=== PATIENT | male | born 1940 | race Hispanic/Latino ===

== ENCOUNTER 2024-02-02 19:13 | Inpatient (IN) | payer MEDICARE ==
[~2024-02-02] VITALS: Ht 177.8 cm; Wt 87.5 kg
[2024-02-02 20:26] LABS: BASOPHILS # (AUTO) 0.03 K/uL (0.00-0.20); BASOPHILS % (AUTO) 0.3 % (0.0-5.0); IMMATURE GRANULOCYTE ABSOLUTE 0.03 K/uL (0-1); LYMPHOCYTES # (AUTO) 0.8 K/uL (1.0-4.8); LYMPHOCYTES % (AUTO) 7.1 % (21.0-51.0); MEAN CORPUSCULAR HEMOGLOBIN 23.5 pg (27.0-33.0); MEAN CORPUSCULAR HGB CONC 31.3 g/dL (32.0-36.0); MONOCYTES # (AUTO) 1.4 K/uL (0.1-1.0); NEUTROPHILS # (AUTO) 8.4 K/uL (1.8-7.7); NEUTROPHILS % (AUTO) 79.3 % (40.0-77.0); PLATELET COUNT (AUTO) 231 K/uL (130-400); RED CELL DISTRIBUTION WIDTH 15.1 % (11.0-15.5); WHITE BLOOD COUNT (AUTO) 10.6 K/uL (4.8-10.8)
[2024-02-02 20:35] LABS: INR 0.95 (0.85-1.15); PROTHROMBIN TIME 11.2 SEC (9.6-11.6)
[2024-02-02] MEDS: 0.9%NACL 1000ML 2,259 ML IV ONE (20:37)
[2024-02-02] MEDS: ZOSYN 3.375GM+NS 50ML 50 ML IVPB STA (20:37)
[2024-02-02 20:49] LABS: BILIRUBIN,TOTAL 0.4 mg/dL (0.2-1.0); CREATININE 1.3 mg/dL (0.5-1.3); POTASSIUM 3.9 mmol/L (3.5-5.1); TOTAL PROTEIN, SERUM 7.3 g/dL (6.0-8.3)
[2024-02-02 20:51] LABS: BAND NEUTROPHILS % (MANUAL) 26 % (0-2); LYMPHOCYTES % (MANUAL) 8 % (22-44); MAN.DIFF COMMENT-IMPRESSION MANUAL DIFFERENTIAL; MONOCYTES % (MANUAL) 13 % (2-9); PLATELET MORPHOLOGY COMMENT ADEQUATE; REACTIVE LYMPHOCYTES 3 % (0-0); SEGMENTED NEUTROPHILS % 50 % (40-70); TOTAL CELLS COUNTED 100
[2024-02-02 21:17] LABS: RAPID GROUP A STREP negative (NEGATIVE)
[2024-02-02 21:19] LABS: SARS-CoV-2, RNA, NAAT NEGATIVE SARS CoV-2 (NEGATIVE)
[2024-02-02] MEDS: VANCOMYCIN 1G/250ML KIT 250 ML IV ONE (21:23)
[2024-02-02 21:27] LABS: INFLUENZA TYPE A Negative For Type A (NEGATIVE); INFLUENZA TYPE B Negative For Type B (NEGATIVE)
[2024-02-02 22:56] LABS: APPEARANCE,URINE CLEAR (CLEAR); BILIRUBIN,URINE NEGATIVE (NEGATIVE); COLOR,URINE YELLOW (YELLOW); GLUCOSE, URINE (UA) NEGATIVE (NEGATIVE); KETONES,URINE NEGATIVE (NEGATIVE); LEUKOCYTE ESTERASE ,URINE NEGATIVE Leu/uL (NEGATIVE); NITRATE,URINE NEGATIVE (NEGATIVE); OCCULT BLOOD,URINE NEGATIVE (NEGATIVE); PH,URINE 5.5 (5.0-8.0); PROTEIN,URINE 70 mg/dL (NEGATIVE); UROBILINOGEN,URINE 0.2 mg/dL (0.2-1.0)
[2024-02-02 23:05] LABS: ADD UA MICROSCOPIC YES
[2024-02-02 23:10] LABS: BACTERIA,URINE RARE /HPF (None Seen); MUCUS,URINE RARE LPF (None Seen); SQUAMOUS EPITHELIAL CELL,UR RARE /HPF (0-2)
[2024-02-02] MEDS ORDERED: ONDANSETRON 4MG INJ IV PRN (23:30)
[2024-02-02] MEDS ORDERED: IPRATROPIUM/ALBUTEROL SULFATE 3 ML SOLUTION IH PRN (23:30)
[2024-02-02] MEDS ORDERED: DEXTROSE 50%-WATER 50 ML DISP.SYRIN IV PRN (23:30)
[2024-02-02] MEDS ORDERED: GLUCAGON 1MG KIT 1 MG ML IM PRN (23:30)
[2024-02-02] MEDS ORDERED: KCL 20 MEQ ERTAB PO PRN (23:30)
[2024-02-03] VITALS (10 sets, daily range): BP systolic 108–150; BP diastolic 62–90; PULSE 65–103; RESP 16–20; O2SAT 92–99
[2024-02-03] MEDS ORDERED: MEMA5TAB16 PO (00:06)
[2024-02-03] MEDS ORDERED: AMLO-257 PO (00:06)
[2024-02-03] MEDS ORDERED: OMEP40CA21 PO (00:06)
[2024-02-03] MEDS ORDERED: SITA50TA PO (00:06)
[2024-02-03] MEDS ORDERED: METF-444 PO (00:06)
[2024-02-03] MEDS ORDERED: GLIM4TAB36 PO (00:06)
[2024-02-03] MEDS ORDERED: LOSA100T59 PO (00:06)
[2024-02-03] MEDS ORDERED: DIVA250T45 PO (00:06)
[2024-02-03] MEDS ORDERED: FURO20TA4 PO (00:06)
[2024-02-03] MEDS ORDERED: QUET50TA24 PO (00:06)
[2024-02-03] MEDS ORDERED: ATOR10TA69 PO (00:06)
[2024-02-03] MEDS ORDERED: CLOP75TA32 PO (00:06)
[2024-02-03] MEDS: METRONIDAZOLE 500MG/100ML BAG 100 ML IV SCH (00:21)
[2024-02-03] MEDS: 0.9%NACL 1000ML 1,000 ML IV SCH (00:22)
[2024-02-03] MEDS: ACETAMINOPHEN 325 MG TAB PO PRN (02:18)
[2024-02-03] MEDS: ZOSYN 3.375GM+NS 50ML 50 ML IV SCH (03:30)
[2024-02-03] MEDS: ZOSYN 3.375GM+NS 50ML 50 ML ONE (03:30)
[2024-02-03 05:50] LABS: BASOPHILS # (AUTO) 0.02 K/uL (0.00-0.20); BASOPHILS % (AUTO) 0.2 % (0.0-5.0); EOSINOPHILS # (AUTO) 0.02 K/uL (0.00-0.70); EOSINOPHILS % (AUTO) 0.2 % (0.0-8.0); HEMATOCRIT 35.9 % (42-54); IMMATURE GRANULOCYTE ABSOLUTE 0.04 K/uL (0-1); LYMPHOCYTES # (AUTO) 1.5 K/uL (1.0-4.8); LYMPHOCYTES % (AUTO) 17.4 % (21.0-51.0); MEAN CORPUSCULAR HEMOGLOBIN 23.7 pg (27.0-33.0); MEAN CORPUSCULAR HGB CONC 30.6 g/dL (32.0-36.0); MEAN CORPUSCULAR VOLUME 77.2 fL (79-99); MONOCYTES # (AUTO) 1.4 K/uL (0.1-1.0); MONOCYTES % (AUTO) 16.2 % (3.0-13.0); NEUTROPHILS # (AUTO) 5.5 K/uL (1.8-7.7); NEUTROPHILS % (AUTO) 65.5 % (40.0-77.0); PLATELET COUNT (AUTO) 190 K/uL (130-400); RED BLOOD CELL COUNT(AUTO) 4.65 MIL/uL (4.50-6.20); RED CELL DISTRIBUTION WIDTH 15.2 % (11.0-15.5); WHITE BLOOD COUNT (AUTO) 8.4 K/uL (4.8-10.8)
[2024-02-03 06:01] LABS: HEMOGLOBIN A1C 7.5 % (4.0-6.0)
[2024-02-03 06:21] LABS: ALBUMIN 2.5 g/dL (3.5-5.0); BILIRUBIN,TOTAL 0.3 mg/dL (0.2-1.0); CREATININE 1.1 mg/dL (0.5-1.3); MAGNESIUM 1.7 mg/dL (1.80-2.40); POTASSIUM 3.6 mmol/L (3.5-5.1); THYROID STIMULATING HORMONE 1.42 uIU/mL (0.36-3.74); TOTAL PROTEIN, SERUM 6.2 g/dL (6.0-8.3)
[2024-02-03] MEDS: MAGNESIUM 2GM PREMIX 50ML 50 ML IV PRN (07:28)
[2024-02-03] MEDS: FAMOTIDINE 20MG VIAL IV SCH (09:53)
[2024-02-03] MEDS: INSULIN HUMULIN R 100 UNIT/ML 3ML SQ SCH ×2 (16:44)
[2024-02-04] VITALS (9 sets, daily range): BP systolic 122–163; BP diastolic 57–88; PULSE 64–97; RESP 18–20; TEMP 100; O2SAT 92–98
[2024-02-04 04:32] LABS: BASOPHILS # (AUTO) 0.03 K/uL (0.00-0.20); BASOPHILS % (AUTO) 0.5 % (0.0-5.0); EOSINOPHILS # (AUTO) 0.15 K/uL (0.00-0.70); EOSINOPHILS % (AUTO) 2.7 % (0.0-8.0); HEMATOCRIT 31.9 % (42-54); IMMATURE GRANULOCYTE ABSOLUTE 0.03 K/uL (0-1); LYMPHOCYTES # (AUTO) 1.1 K/uL (1.0-4.8); LYMPHOCYTES % (AUTO) 19.5 % (21.0-51.0); MEAN CORPUSCULAR HGB CONC 30.7 g/dL (32.0-36.0); MEAN CORPUSCULAR VOLUME 74.9 fL (79-99); MONOCYTES % (AUTO) 18.1 % (3.0-13.0); NEUTROPHILS # (AUTO) 3.3 K/uL (1.8-7.7); NEUTROPHILS % (AUTO) 58.7 % (40.0-77.0); PLATELET COUNT (AUTO) 176 K/uL (130-400); RED BLOOD CELL COUNT(AUTO) 4.26 MIL/uL (4.50-6.20); RED CELL DISTRIBUTION WIDTH 14.7 % (11.0-15.5); WHITE BLOOD COUNT (AUTO) 5.5 K/uL (4.8-10.8)
[2024-02-04 04:47] LABS: CREATININE 0.9 mg/dL (0.5-1.3)
[2024-02-04 04:50] LABS: POTASSIUM 2.9 mmol/L (3.5-5.1)
[2024-02-04] MEDS: POTASSIUM CHLORIDE 20MEQ/100ML 100 ML IV PRN (05:00)
[2024-02-05] VITALS (20 sets, daily range): BP systolic 117–155; BP diastolic 42–94; PULSE 65–89; RESP 16–20; O2SAT 92–98
[2024-02-05 04:56] LABS: BASOPHILS # (AUTO) 0.02 K/uL (0.00-0.20); BASOPHILS % (AUTO) 0.3 % (0.0-5.0); EOSINOPHILS # (AUTO) 0.05 K/uL (0.00-0.70); EOSINOPHILS % (AUTO) 0.7 % (0.0-8.0); HEMATOCRIT 33.3 % (42-54); IMMATURE GRANULOCYTE ABSOLUTE 0.04 K/uL (0-1); LYMPHOCYTES # (AUTO) 1.2 K/uL (1.0-4.8); LYMPHOCYTES % (AUTO) 17.2 % (21.0-51.0); MEAN CORPUSCULAR HEMOGLOBIN 23.5 pg (27.0-33.0); MEAN CORPUSCULAR HGB CONC 31.2 g/dL (32.0-36.0); MEAN CORPUSCULAR VOLUME 75.3 fL (79-99); MONOCYTES # (AUTO) 1.4 K/uL (0.1-1.0); MONOCYTES % (AUTO) 19.7 % (3.0-13.0); NEUTROPHILS # (AUTO) 4.4 K/uL (1.8-7.7); NEUTROPHILS % (AUTO) 61.5 % (40.0-77.0); PLATELET COUNT (AUTO) 189 K/uL (130-400); RED BLOOD CELL COUNT(AUTO) 4.42 MIL/uL (4.50-6.20); RED CELL DISTRIBUTION WIDTH 14.6 % (11.0-15.5); WHITE BLOOD COUNT (AUTO) 7.1 K/uL (4.8-10.8)
[2024-02-05 05:28] LABS: CREATININE 0.9 mg/dL (0.5-1.3)
[2024-02-05 05:44] LABS: POTASSIUM 2.8 mmol/L (3.5-5.1)
[2024-02-05] MEDS: POTASSIUM CHLORIDE 10% ELIXIR 20 MEQ/15 ML UDCUP PO PRN (05:50)
[2024-02-05 09:43] LABS: MAGNESIUM 1.7 mg/dL (1.80-2.40); POTASSIUM 3.1 mmol/L (3.5-5.1)
[2024-02-05] MEDS ORDERED: FENTANYL CITRATE PF 50 MCG/1 ML 2ML VIAL ONE (11:30)
[2024-02-05] MEDS ORDERED: PROPOFOL 10 MG/ML 20ML VIAL IV ONE (11:30)
[2024-02-05 13:13] LABS: HEMATOCRIT 33.2 % (42-54); MEAN CORPUSCULAR HEMOGLOBIN 23.5 pg (27.0-33.0); MEAN CORPUSCULAR VOLUME 75.6 fL (79-99); RED BLOOD CELL COUNT(AUTO) 4.39 MIL/uL (4.50-6.20); RED CELL DISTRIBUTION WIDTH 14.7 % (11.0-15.5)
[2024-02-05 13:28] LABS: CREATININE 0.8 mg/dL (0.5-1.3)
[2024-02-05 16:08] LABS: C DIFFICILE TOXIN A/B Not Detected (Not Detected); ENTEROAGGREGATIVE ECOLI Not Detected (Not Detected); GIARDIA LAMBLIA Not Detected (Not Detected); PLESIOMONAS SHIGELOIDES Not Detected (Not Detected); SAPOVIRUS Not Detected (Not Detected); SHIGELLA/ENTEROINVASIVE E COLI Not Detected (Not Detected); VIBRIO Not Detected (Not Detected); VIBRIO CHOLERAE Not Detected (Not Detected)
[2024-02-05] MEDS: ALBUTEROL 0.083% 2.5 MG/3 ML INH IH SCH (19:19)
[2024-02-05 19:41] LABS: MAGNESIUM 2.1 mg/dL (1.80-2.40); POTASSIUM 3.2 mmol/L (3.5-5.1)
[2024-02-05] MEDS: FAMOTIDINE 20MG VIAL IV SCH (20:52)
[2024-02-06] VITALS (12 sets, daily range): BP systolic 115–158; BP diastolic 56–97; PULSE 61–91; RESP 15–22; O2SAT 92–98
[2024-02-06 03:56] LABS: BASOPHILS # (AUTO) 0.03 K/uL (0.00-0.20); BASOPHILS % (AUTO) 0.3 % (0.0-5.0); EOSINOPHILS # (AUTO) 0.02 K/uL (0.00-0.70); EOSINOPHILS % (AUTO) 0.2 % (0.0-8.0); HEMATOCRIT 34.8 % (42-54); LYMPHOCYTES # (AUTO) 1.4 K/uL (1.0-4.8); LYMPHOCYTES % (AUTO) 12.8 % (21.0-51.0); MEAN CORPUSCULAR HEMOGLOBIN 23.5 pg (27.0-33.0); MEAN CORPUSCULAR HGB CONC 31.3 g/dL (32.0-36.0); MEAN CORPUSCULAR VOLUME 75.2 fL (79-99); MONOCYTES % (AUTO) 18.3 % (3.0-13.0); NEUTROPHILS # (AUTO) 7.5 K/uL (1.8-7.7); NEUTROPHILS % (AUTO) 67.5 % (40.0-77.0); NUCLEATED RED BLOOD CELLS 0.2 % (0.0-0.19); PLATELET COUNT (AUTO) 214 K/uL (130-400); RED BLOOD CELL COUNT(AUTO) 4.63 MIL/uL (4.50-6.20); RED CELL DISTRIBUTION WIDTH 14.8 % (11.0-15.5); WHITE BLOOD COUNT (AUTO) 11.1 K/uL (4.8-10.8)
[2024-02-06 04:17] LABS: CREATININE 0.8 mg/dL (0.5-1.3); POTASSIUM 3.4 mmol/L (3.5-5.1)
[2024-02-06] MEDS: FUROSEMIDE 40MG VIAL IV ONE (05:58)
[2024-02-06] MEDS: POTASSIUM CHLORIDE 10MEQ/100ML 100 ML IV PRN (06:10)
[2024-02-06] MEDS: POTASSIUM CHLORIDE 10MEQ/100ML 100 ML IV ONE (06:20)
[2024-02-07] VITALS (10 sets, daily range): BP systolic 130–163; BP diastolic 63–89; PULSE 64–100; RESP 18–22; O2SAT 96–100
[2024-02-07] MEDS: CEFTRIAXONE 2GM VIAL IVPB SCH (13:11)
== END 2024-02-07 19:45 | DRG 871 ==
LOC: EDH 19:13 → EDHIP 19:14 → 4BH 02-03 00:20
PROVIDERS: ADMIT Hospitalist; ATTEND Hospitalist
PROC: 0W3P8ZZ Control Bleeding in Gastrointestinal Tract, Via Natural or Artificial Opening Endoscopic (ICD-10-PCS; principal; 2024-02-05)
PROC: 0DB58ZZ Excision of Esophagus, Via Natural or Artificial Opening Endoscopic (ICD-10-PCS; 2024-02-05)
DX: A41.50 Gram-negative sepsis, unspecified (principal); G92.8 Other toxic encephalopathy; J18.9 Pneumonia, unspecified organism; R53.2 Functional quadriplegia; A02.9 Salmonella infection, unspecified; A09 Infectious gastroenteritis and colitis, unspecified; Z20.822 Contact with and (suspected) exposure to COVID-19; E86.0 Dehydration; E11.9 Type 2 diabetes mellitus without complications; D64.9 Anemia, unspecified; F03.90 Unspecified dementia, unspecified severity, without behavioral disturbance, psychotic disturbance, mood disturbance, and anxiety; E78.00 Pure hypercholesterolemia, unspecified; E87.6 Hypokalemia; Z96.653 Presence of artificial knee joint, bilateral; F91.9 Conduct disorder, unspecified; I10 Essential (primary) hypertension; I25.10 Atherosclerotic heart disease of native coronary artery without angina pectoris; Z74.01 Bed confinement status; Z83.3 Family history of diabetes mellitus; Z86.73 Personal history of transient ischemic attack (TIA), and cerebral infarction without residual deficits; Z79.899 Other long term (current) drug therapy; Z88.8 Allergy status to other drugs, medicaments and biological substances
CPT/HCPCS: 36415; 43251; 70450; 71045; 80048; 80053; 80061; 81001; 82270; 82550; 82948; 83036; 83605; 83630; 83735; 83880; 84132; 84145; 84443; 84484; 85025; 85027; 85610; 85730; 87040; 87077; 87088; 87186; 87324; 87507; 87635; 87804; 87880; 92610; 93005; 94640; 94664; 96365; 96368; A4606; G0378; J0696; J1815; J1940; J2543; J2704; J3010; J3370; J3475; J3480; J3490; J7030; A4215; A4223; A4600; A4620; A4649

== ENCOUNTER → 2024-03-12 | Outpatient (CLI) | payer MEDICARE ==
[~2024-03-12] MED LIST: AMLO-257 PO; ATOR10TA69 PO; CLOP75TA32 PO; DIVA250T45 PO; FURO20TA4 PO; GLIM4TAB36 PO; LOSA100T59 PO; MEMA5TAB16 PO; METF-444 PO; OMEP40CA21 PO; QUET50TA24 PO; SITA50TA PO
== END | disposition home or self-care (01) ==
LOC: SHCH 13:15
PROVIDERS: ATTEND Internal Medicine Cardiovascular Disease
DX: I08.0 Rheumatic disorders of both mitral and aortic valves (principal); I50.20 Unspecified systolic (congestive) heart failure; E11.9 Type 2 diabetes mellitus without complications; E78.5 Hyperlipidemia, unspecified; F03.90 Unspecified dementia, unspecified severity, without behavioral disturbance, psychotic disturbance, mood disturbance, and anxiety
CPT/HCPCS: 93306